=== PATIENT | male | born 1960 | race Hispanic/Latino ===

== ENCOUNTER 2018-06-28 20:36 | Emergency (ER) | payer OTHER ==
[~2018-06-28 20:36] MED LIST: ASPI-555 PO; ATOR40TA69 PO; CARV6.25 PO; CLOP75TA32 PO; ESCI10TA54 PO; LISI10TA7 PO; NAPR250T4 PO; TRAM50TA4 PO
[2018-06-28] MEDS ORDERED: ONDANSETRON HCL 4 MG/2 ML VIAL ONE (21:08)
[2018-06-28] MEDS ORDERED: LACTATED RINGERS 1000ML 1,000 ML IV ONE (21:09)
[2018-06-28] MEDS ORDERED: FAMOTIDINE/PF 20 MG/2 ML VIAL IV ONE (21:09)
[2018-06-28 21:30] LABS: BASOPHILS % (AUTO) 0.6 % (0.0-5.0); EOSINOPHILS % (AUTO) 1.7 % (0.0-8.0); HEMATOCRIT 34.1 % (42-54); LYMPHOCYTES % (AUTO) 27.8 % (21.0-51.0); MEAN CORPUSCULAR VOLUME 78.9 fL (79-99); MONOCYTES % (AUTO) 7.9 % (3.0-13.0); PLATELET COUNT (AUTO) 256 K/uL (130-400); RED BLOOD CELL COUNT(AUTO) 4.32 MIL/uL (4.50-6.20); RED CELL DISTRIBUTION WIDTH 16.6 % (11.0-15.5); WHITE BLOOD COUNT (AUTO) 6.9 K/uL (4.8-10.8)
[2018-06-28 21:43] LABS: INR 0.95 (0.85-1.15); PARTIAL THROMBOPLASTIN TIME 26.6 SEC (26.3-35.5)
[2018-06-28 21:44] LABS: CREATININE 0.9 mg/dL (0.5-1.5); POTASSIUM 3.8 mmol/L (3.5-5.1)
[2018-06-28 21:50] LABS: ALBUMIN 3.1 g/dL (3.5-5.0); BILIRUBIN,TOTAL 0.1 mg/dL (0.2-1.0); CRP QUANTITATIVE 7.9 mg/L (0.00-9.0); MAGNESIUM 1.9 mg/dL (1.80-2.40); TOTAL PROTEIN, SERUM 7.1 g/dL (6.0-8.3)
[2018-06-28 22:12] LABS: APPEARANCE,URINE Clear (CLEAR); BILIRUBIN,URINE Negative (NEGATIVE); COLOR,URINE Yellow (YELLOW); GLUCOSE, URINE (UA) Negative (NEGATIVE); KETONES,URINE Negative (NEGATIVE); LEUKOCYTE ESTERASE ,URINE Negative (NEGATIVE); NITRATE,URINE Negative (NEGATIVE); OCCULT BLOOD,URINE Negative (NEGATIVE); PH,URINE 6.5 (5.0-8.0); PROTEIN,URINE Negative (NEGATIVE)
[2018-06-28] MEDS ORDERED: MAG HYDROX/AL HYDROX/SIMETH ES 30 ML SUSP UDCUP ONE (22:32)
[2018-06-28] MEDS ORDERED: IPRATROPIUM/ALBUTEROL SULFATE 3 ML SOLUTION IH ONE (22:45)
== END 2018-06-28 23:10 | disposition home or self-care (01) ==
LOC: EDH 20:36
DX: E86.0 Dehydration (principal); R42 Dizziness and giddiness; J44.9 Chronic obstructive pulmonary disease, unspecified; R53.81 Other malaise; R53.83 Other fatigue; I25.10 Atherosclerotic heart disease of native coronary artery without angina pectoris; I10 Essential (primary) hypertension
CPT/HCPCS: 36415; 70450; 71045; 72125; 80053; 81003; 82550; 83605; 83690; 83735; 84484; 85025; 85610; 85730; 86140; 87040 ×2; 87804 ×2; 93005; 94640; 96361; 96374; 96375; 99285; J2405; J3490; J7120

== ENCOUNTER 2018-07-24 11:50 | Emergency (ER) | payer OTHER ==
[2018-07-24 12:24] LABS: CREATININE 0.9 mg/dL (0.5-1.5); POTASSIUM 4.2 mmol/L (3.5-5.1)
[2018-07-24 12:27] LABS: INR 0.89 (0.85-1.15); PARTIAL THROMBOPLASTIN TIME 26.4 SEC (26.3-35.5); PROTHROMBIN TIME 9.4 SEC (9.6-11.6)
[2018-07-24 12:31] LABS: ALBUMIN 3.1 g/dL (3.5-5.0); BASOPHILS % (AUTO) 0.9 % (0.0-5.0); BILIRUBIN,TOTAL 0.1 mg/dL (0.2-1.0); EOSINOPHILS % (AUTO) 3.2 % (0.0-8.0); HEMATOCRIT 34.1 % (42-54); LYMPHOCYTES % (AUTO) 24.2 % (21.0-51.0); MEAN CORPUSCULAR HEMOGLOBIN 26.4 pg (27.0-33.0); MEAN CORPUSCULAR HGB CONC 32.8 g/dL (32.0-36.0); MEAN CORPUSCULAR VOLUME 80.5 fL (79-99); MONOCYTES % (AUTO) 8.3 % (3.0-13.0); NEUTROPHILS % (AUTO) 63.4 % (40.0-77.0); PLATELET COUNT (AUTO) 305 K/uL (130-400); RED BLOOD CELL COUNT(AUTO) 4.24 MIL/uL (4.50-6.20); RED CELL DISTRIBUTION WIDTH 16.9 % (11.0-15.5); TOTAL PROTEIN, SERUM 7.4 g/dL (6.0-8.3); WHITE BLOOD COUNT (AUTO) 6.9 K/uL (4.8-10.8)
[2018-07-24 13:01] LABS: APPEARANCE,URINE Clear (CLEAR); BILIRUBIN,URINE Negative (NEGATIVE); COLOR,URINE Yellow (YELLOW); GLUCOSE, URINE (UA) Negative (NEGATIVE); KETONES,URINE Negative (NEGATIVE); LEUKOCYTE ESTERASE ,URINE Negative (NEGATIVE); NITRATE,URINE Negative (NEGATIVE); OCCULT BLOOD,URINE Negative (NEGATIVE); PH,URINE 5.5 (5.0-8.0); PROTEIN,URINE Negative (NEGATIVE); UROBILINOGEN,URINE 0.2 mg/dL (0.2-1.0)
[2018-07-24 13:08] LABS: AMPHET/METH SCREEN,URINE NEGATIVE (NEGATIVE); BARBITURATE SCREEN, URINE NEGATIVE (NEGATIVE); BENZODIAZEPINES SCREEN,URINE POSITIVE (NEGATIVE); CANNABINOID SCREEN,URINE NEGATIVE (NEGATIVE); COCAINE SCREEN,URINE NEGATIVE (NEGATIVE); OPIATE SCREEN,URINE NEGATIVE (NEGATIVE); PHENCYCLIDINE SCREEN,URINE NEGATIVE (NEGATIVE)
[2018-07-24] MEDS ORDERED: SODIUM CHLORIDE 0.9% 1000ML 1,000 ML IV ONE (14:00)
[2018-07-24] MEDS ORDERED: IOHEXOL 350 MG/ML 100ML INFUS..BTL IV ONE (15:00)
[2018-07-24] MEDS ORDERED: METHYLPREDNISOLONE SOD SUCC 125MG/2ML VIAL ONE (16:19)
== END 2018-07-24 16:48 | disposition home or self-care (01) ==
LOC: EDH 11:50
DX: I24.1 Dressler's syndrome (principal); R07.89 Other chest pain; R42 Dizziness and giddiness; R06.02 Shortness of breath; I25.10 Atherosclerotic heart disease of native coronary artery without angina pectoris; J44.9 Chronic obstructive pulmonary disease, unspecified; I10 Essential (primary) hypertension; Z95.1 Presence of aortocoronary bypass graft
CPT/HCPCS: 36415; 71045; 71275; 80053; 80305; 81003; 82550; 83880; 84484; 85025; 85378; 85610; 85730; 93005; 96361; 96374; 99291; J2930; J7030; Q9967

== ENCOUNTER 2018-07-31 14:34 | Emergency (ER) | payer OTHER ==
[2018-07-31] MEDS ORDERED: MORPHINE SULFATE 4 MG/1ML SYG ONE (16:58)
[2018-07-31] MEDS ORDERED: ONDANSETRON HCL 4 MG/2 ML VIAL ONE (16:58)
[2018-07-31 17:02] LABS: BASOPHILS % (AUTO) 0.8 % (0.0-5.0); EOSINOPHILS % (AUTO) 3.2 % (0.0-8.0); HEMATOCRIT 34.5 % (42-54); LYMPHOCYTES % (AUTO) 20.3 % (21.0-51.0); MEAN CORPUSCULAR HEMOGLOBIN 24.3 pg (27.0-33.0); MEAN CORPUSCULAR HGB CONC 30.1 g/dL (32.0-36.0); MEAN CORPUSCULAR VOLUME 80.8 fL (79-99); MONOCYTES % (AUTO) 8.7 % (3.0-13.0); NUCLEATED RED BLOOD CELLS 0.1 % (0.0-0.19); PLATELET COUNT (AUTO) 285 K/uL (130-400); RED BLOOD CELL COUNT(AUTO) 4.27 MIL/uL (4.50-6.20); RED CELL DISTRIBUTION WIDTH 16.8 % (11.0-15.5); WHITE BLOOD COUNT (AUTO) 8.3 K/uL (4.8-10.8)
[2018-07-31 17:12] LABS: POTASSIUM 4.3 mmol/L (3.5-5.1)
[2018-07-31 17:17] LABS: ALBUMIN 3.1 g/dL (3.5-5.0); BILIRUBIN,TOTAL 0.2 mg/dL (0.2-1.0); TOTAL PROTEIN, SERUM 7.3 g/dL (6.0-8.3)
== END 2018-07-31 18:18 | disposition home or self-care (01) ==
LOC: EDH 14:34
DX: S62.002A Unspecified fracture of navicular [scaphoid] bone of left wrist, initial encounter for closed fracture (principal); R42 Dizziness and giddiness; M19.90 Unspecified osteoarthritis, unspecified site; J44.9 Chronic obstructive pulmonary disease, unspecified; I25.10 Atherosclerotic heart disease of native coronary artery without angina pectoris; I10 Essential (primary) hypertension; Z90.49 Acquired absence of other specified parts of digestive tract; Z95.1 Presence of aortocoronary bypass graft; Z98.890 Other specified postprocedural states; W18.39XA Other fall on same level, initial encounter; Y93.89 Activity, other specified; Y92.89 Other specified places as the place of occurrence of the external cause; Y99.8 Other external cause status
CPT/HCPCS: 29125; 36415; 71045; 73080; 73110; 73130; 80053; 84484; 85025; 93005; 96374; 96375; 99285; J2270; J2405

== ENCOUNTER 2018-08-01 00:05 | Inpatient (IN) | payer OTHER ==
[2018-08-01] VITALS (8 sets, daily range): BP systolic 129–148; BP diastolic 74–97
[~2018-08-01] VITALS: Ht 175.3 cm; Wt 102.3 kg
[2018-08-01] MEDS ORDERED: ONDANSETRON 4 MG TABLET ONE (01:43)
[2018-08-01] MEDS ORDERED: ACETAMINOPHEN 325 MG TAB ONE (01:43)
[2018-08-01] MEDS ORDERED: MORPHINE SULFATE 4 MG/1ML SYG ONE (01:43)
[2018-08-01 02:15] LABS: BASOPHILS % (AUTO) 0.5 % (0.0-5.0); MEAN CORPUSCULAR HEMOGLOBIN 25.3 pg (27.0-33.0); MEAN CORPUSCULAR HGB CONC 31.6 g/dL (32.0-36.0); MEAN CORPUSCULAR VOLUME 80.2 fL (79-99); MONOCYTES % (AUTO) 6.6 % (3.0-13.0); NEUTROPHILS % (AUTO) 80.9 % (40.0-77.0); PLATELET COUNT (AUTO) 302 K/uL (130-400); RED BLOOD CELL COUNT(AUTO) 4.36 MIL/uL (4.50-6.20); RED CELL DISTRIBUTION WIDTH 16.6 % (11.0-15.5); WHITE BLOOD COUNT (AUTO) 10.9 K/uL (4.8-10.8)
[2018-08-01] MEDS ORDERED: LIDOCAINE HCL 1% 20 ML VIAL ONE (05:18)
[2018-08-01] MEDS ORDERED: DEXTROSE 50%-WATER 50 ML DISP.SYRIN IV PRN ×2 (06:15→12:15)
[2018-08-01] MEDS ORDERED: CEFTRIAXONE SODIUM 1 GM ONE (06:15)
[2018-08-01] MEDS ORDERED: GLUCAGON 1MG KIT 1 MG ML IM PRN ×2 (06:15→12:15)
[2018-08-01] MEDS ORDERED: HYDROCODONE/ACETAMINOPHEN 5/325 MG TAB PO PRN (06:15)
[2018-08-01] MEDS ORDERED: ONDANSETRON HCL 4 MG/2 ML VIAL IV PRN (06:15)
[2018-08-01] MEDS ORDERED: ACETAMINOPHEN 325 MG TAB PO PRN (06:15)
[2018-08-01] MEDS ORDERED: CLINDAMYCIN 600 MG/D5% WATER 50 ML IV ONE (06:54)
[2018-08-01 07:23] LABS: APPEARANCE BODY FLUID TURBID (CLEAR); BODY FLUID RBC 190750 /cu. mm.; BODY FLUID WBC 26032 /cu. mm.; COLOR,BODY FLUID RED (LT YELLOW); SPECIMENTYPE,BODY FLUID SYNOVIAL; TOTAL VOLUME,BODY FLUID 1 mL
[2018-08-01] MEDS ORDERED: INSULIN HUMULIN R 100 UNIT/ML 3ML SQ SCH (07:30)
[2018-08-01 08:06] LABS: BF LYMPHOCYTE 1 %; BF MONOCYTE 8 %
[2018-08-01 08:18] LABS: GLUCOSE,BODY FLUID 84 mg/dL (1-40)
[2018-08-01] MEDS: PANTOPRAZOLE SODIUM 40 MG TABLET.DR PO SCH (08:53)
[2018-08-01] MEDS: HYDROCODONE/ACETAMINOPHEN 5/325 MG TAB PO PRN ×3 (08:55→18:21)
[2018-08-01] MEDS: CLINDAMYCIN 600 MG/D5% WATER 50 ML IV SCH ×2 (13:52→20:48)
[2018-08-01] MEDS: INSULIN HUMULIN R 100 UNIT/ML 3ML SQ SCH ×2 (16:30→20:40)
[2018-08-01 17:44] LABS: CRYSTALS, SYNOVIAL FLUID SEE SEPARATE REPORT
[2018-08-02] VITALS (13 sets, daily range): BP systolic 118–154; BP diastolic 50–97
[2018-08-02] MEDS: HYDROCODONE/ACETAMINOPHEN 5/325 MG TAB PO PRN ×3 (00:52→21:36)
[2018-08-02 04:37] LABS: MEAN CORPUSCULAR HEMOGLOBIN 25.7 pg (27.0-33.0); MEAN CORPUSCULAR HGB CONC 32.1 g/dL (32.0-36.0); MEAN CORPUSCULAR VOLUME 80.2 fL (79-99); PLATELET COUNT (AUTO) 270 K/uL (130-400); RED BLOOD CELL COUNT(AUTO) 4.24 MIL/uL (4.50-6.20); RED CELL DISTRIBUTION WIDTH 16.5 % (11.0-15.5); WHITE BLOOD COUNT (AUTO) 8.9 K/uL (4.8-10.8)
[2018-08-02 04:50] LABS: ALBUMIN 2.9 g/dL (3.5-5.0); BILIRUBIN,TOTAL 0.3 mg/dL (0.2-1.0); POTASSIUM 4.2 mmol/L (3.5-5.1); TOTAL PROTEIN, SERUM 7.2 g/dL (6.0-8.3)
[2018-08-02] MEDS: PANTOPRAZOLE SODIUM 40 MG TABLET.DR PO SCH (06:10)
[2018-08-02] MEDS: INSULIN HUMULIN R 100 UNIT/ML 3ML SQ SCH ×4 (06:10→21:00)
[2018-08-02] MEDS: CLINDAMYCIN 600 MG/D5% WATER 50 ML IV SCH ×3 (06:10→21:29)
[2018-08-02] MEDS: ASPIRIN 81 MG EC TAB PO SCH (09:50)
[2018-08-02] MEDS: CARVEDILOL 6.25 MG TABLET PO SCH ×2 (09:51→21:28)
[2018-08-02] MEDS: CLOPIDOGREL BISULFATE 75 MG TAB PO SCH (09:51)
[2018-08-02] MEDS: CITALOPRAM 20 MG TABLET PO SCH (09:51)
[2018-08-02] MEDS: LISINOPRIL 10 MG TABLET PO SCH (21:27)
[2018-08-02] MEDS: ATORVASTATIN CALCIUM 40 MG TABLET PO SCH (21:27)
[2018-08-03] VITALS (9 sets, daily range): BP systolic 86–139; BP diastolic 50–92
[2018-08-03] MEDS: IPRATROPIUM/ALBUTEROL SULFATE 3 ML SOLUTION IH SCH ×5 (01:29→22:58)
[2018-08-03 06:09] LABS: BASOPHILS % (AUTO) 0.6 % (0.0-5.0); EOSINOPHILS % (AUTO) 1.1 % (0.0-8.0); HEMATOCRIT 32.5 % (42-54); LYMPHOCYTES % (AUTO) 13.5 % (21.0-51.0); MEAN CORPUSCULAR HEMOGLOBIN 26.9 pg (27.0-33.0); MEAN CORPUSCULAR HGB CONC 33.7 g/dL (32.0-36.0); MEAN CORPUSCULAR VOLUME 79.8 fL (79-99); MONOCYTES % (AUTO) 11.4 % (3.0-13.0); NEUTROPHILS % (AUTO) 73.4 % (40.0-77.0); PLATELET COUNT (AUTO) 326 K/uL (130-400); RED BLOOD CELL COUNT(AUTO) 4.07 MIL/uL (4.50-6.20); RED CELL DISTRIBUTION WIDTH 16.9 % (11.0-15.5); WHITE BLOOD COUNT (AUTO) 9.4 K/uL (4.8-10.8)
[2018-08-03 06:21] LABS: CREATININE 0.9 mg/dL (0.5-1.5); POTASSIUM 4.1 mmol/L (3.5-5.1)
[2018-08-03] MEDS: CLINDAMYCIN 600 MG/D5% WATER 50 ML IV SCH ×3 (06:25→21:44)
[2018-08-03] MEDS: PANTOPRAZOLE SODIUM 40 MG TABLET.DR PO SCH (06:25)
[2018-08-03] MEDS: INSULIN HUMULIN R 100 UNIT/ML 3ML SQ SCH ×4 (07:30→21:00)
[2018-08-03] MEDS: CITALOPRAM 20 MG TABLET PO SCH (10:38)
[2018-08-03] MEDS: ASPIRIN 81 MG EC TAB PO SCH (10:38)
[2018-08-03] MEDS: CLOPIDOGREL BISULFATE 75 MG TAB PO SCH (10:38)
[2018-08-03] MEDS: CARVEDILOL 6.25 MG TABLET PO SCH ×2 (10:39→21:42)
[2018-08-03] MEDS: HYDROCODONE/ACETAMINOPHEN 5/325 MG TAB PO PRN ×2 (10:46→21:44)
[2018-08-03] MEDS: INDOMETHACIN 25 MG CAP PO SCH ×2 (12:21→21:42)
[2018-08-03] MEDS: LISINOPRIL 10 MG TABLET PO SCH (21:42)
[2018-08-03] MEDS: ATORVASTATIN CALCIUM 40 MG TABLET PO SCH (21:42)
[2018-08-04] VITALS (9 sets, daily range): BP systolic 67–134; BP diastolic 45–81
[2018-08-04] MEDS: HYDROCODONE/ACETAMINOPHEN 5/325 MG TAB PO PRN ×2 (03:08→15:26)
[2018-08-04 04:45] LABS: BASOPHILS % (AUTO) 0.5 % (0.0-5.0); HEMATOCRIT 31.4 % (42-54); MEAN CORPUSCULAR HEMOGLOBIN 26.2 pg (27.0-33.0); MEAN CORPUSCULAR HGB CONC 32.8 g/dL (32.0-36.0); MEAN CORPUSCULAR VOLUME 79.8 fL (79-99); MONOCYTES % (AUTO) 11.4 % (3.0-13.0); NEUTROPHILS % (AUTO) 62.1 % (40.0-77.0); NUCLEATED RED BLOOD CELLS 0.1 % (0.0-0.19); PLATELET COUNT (AUTO) 288 K/uL (130-400); RED BLOOD CELL COUNT(AUTO) 3.94 MIL/uL (4.50-6.20); RED CELL DISTRIBUTION WIDTH 16.5 % (11.0-15.5); WHITE BLOOD COUNT (AUTO) 6.8 K/uL (4.8-10.8)
[2018-08-04 04:53] LABS: CREATININE 1.2 mg/dL (0.5-1.5); POTASSIUM 3.8 mmol/L (3.5-5.1); URIC ACID 6.3 mg/dL (2.6-7.2)
[2018-08-04] MEDS: INSULIN HUMULIN R 100 UNIT/ML 3ML SQ SCH ×4 (05:50→21:00)
[2018-08-04] MEDS: CLINDAMYCIN 600 MG/D5% WATER 50 ML IV SCH ×3 (06:02→23:32)
[2018-08-04] MEDS: IPRATROPIUM/ALBUTEROL SULFATE 3 ML SOLUTION IH SCH ×4 (06:05→23:04)
[2018-08-04] MEDS: PANTOPRAZOLE SODIUM 40 MG TABLET.DR PO SCH (08:16)
[2018-08-04] MEDS: CLOPIDOGREL BISULFATE 75 MG TAB PO SCH (11:10)
[2018-08-04] MEDS: CARVEDILOL 6.25 MG TABLET PO SCH ×2 (11:11→21:14)
[2018-08-04] MEDS: ASPIRIN 81 MG EC TAB PO SCH (11:11)
[2018-08-04] MEDS: CITALOPRAM 20 MG TABLET PO SCH (11:11)
[2018-08-04] MEDS: INDOMETHACIN 25 MG CAP PO SCH ×2 (11:17→21:13)
[2018-08-04] MEDS: ATORVASTATIN CALCIUM 40 MG TABLET PO SCH (21:13)
[2018-08-04] MEDS: LISINOPRIL 10 MG TABLET PO SCH (21:14)
[2018-08-05 04:00] VITALS: BP 134/66
[2018-08-05] MEDS: HYDROCODONE/ACETAMINOPHEN 5/325 MG TAB PO PRN ×2 (04:26→11:03)
[2018-08-05] MEDS: IPRATROPIUM/ALBUTEROL SULFATE 3 ML SOLUTION IH SCH ×2 (05:59→11:26)
[2018-08-05] MEDS: INSULIN HUMULIN R 100 UNIT/ML 3ML SQ SCH ×2 (06:08→11:30)
[2018-08-05] MEDS: CLINDAMYCIN 600 MG/D5% WATER 50 ML IV SCH (06:09)
[2018-08-05] MEDS: PANTOPRAZOLE SODIUM 40 MG TABLET.DR PO SCH (06:09)
[2018-08-05 07:30] VITALS: BP 126/78
[2018-08-05 07:32] VITALS: BP 135/89
[2018-08-05 07:35] VITALS: BP 131/90
[2018-08-05 11:00] VITALS: BP 104/66
[2018-08-05 11:04] VITALS: BP 131/90
[2018-08-05] MEDS: CARVEDILOL 6.25 MG TABLET PO SCH (11:04)
[2018-08-05] MEDS: CITALOPRAM 20 MG TABLET PO SCH (11:04)
[2018-08-05] MEDS: INDOMETHACIN 25 MG CAP PO SCH (11:04)
[2018-08-05] MEDS: CLOPIDOGREL BISULFATE 75 MG TAB PO SCH (11:04)
[2018-08-05] MEDS: ASPIRIN 81 MG EC TAB PO SCH (11:04)
[2018-08-05] MEDS ORDERED: NAPR-1023 PO (11:23)
== END 2018-08-05 14:41 | disposition home or self-care (01) | DRG 603 ==
LOC: EDH 00:05 → EDHIP 00:06 → 3AH 07:49
PROVIDERS: ADMIT Internal Medicine; ATTEND Internal Medicine
DX: L03.114 Cellulitis of left upper limb (principal); I25.10 Atherosclerotic heart disease of native coronary artery without angina pectoris; M10.9 Gout, unspecified; I10 Essential (primary) hypertension; J44.9 Chronic obstructive pulmonary disease, unspecified; E11.9 Type 2 diabetes mellitus without complications; M19.032 Primary osteoarthritis, left wrist; W19.XXXA Unspecified fall, initial encounter; Y93.E1 Activity, personal bathing and showering; Y92.091 Bathroom in other non-institutional residence as the place of occurrence of the external cause; Y99.8 Other external cause status; Z95.1 Presence of aortocoronary bypass graft; Z88.5 Allergy status to narcotic agent; Z79.4 Long term (current) use of insulin; Z80.3 Family history of malignant neoplasm of breast; Z83.6 Family history of other diseases of the respiratory system; Z83.3 Family history of diabetes mellitus; Z82.49 Family history of ischemic heart disease and other diseases of the circulatory system; Z82.5 Family history of asthma and other chronic lower respiratory diseases
CPT/HCPCS: 36415; 73110; 73200; 78315; 80048; 80053; 82945; 82948; 84157; 84550; 85025; 85027; 87071; 87205; 89051; 89060; 93971; 94640; 94664; A9503; J0696; J2270; J3490; Q0162

== ENCOUNTER 2018-10-05 12:08 | Inpatient (IN) | payer OTHER ==
[~2018-10-05] VITALS: Ht 175.3 cm; Wt 102.1 kg
[~2018-10-05 12:08] MED LIST changes: +NAPR-1023 PO; -NAPR250T4 PO
[2018-10-05 13:14] LABS: BASOPHILS % (AUTO) 0.6 % (0.0-5.0); EOSINOPHILS % (AUTO) 2.7 % (0.0-8.0); HEMATOCRIT 34.7 % (42-54); LYMPHOCYTES % (AUTO) 27.1 % (21.0-51.0); MEAN CORPUSCULAR HGB CONC 33.3 g/dL (32.0-36.0); MONOCYTES % (AUTO) 7.3 % (3.0-13.0); NEUTROPHILS % (AUTO) 62.3 % (40.0-77.0); PLATELET COUNT (AUTO) 345 K/uL (130-400); RED BLOOD CELL COUNT(AUTO) 4.29 MIL/uL (4.50-6.20); RED CELL DISTRIBUTION WIDTH 15.9 % (11.0-15.5); WHITE BLOOD COUNT (AUTO) 5.9 K/uL (4.8-10.8)
[2018-10-05 13:28] LABS: CREATININE 0.8 mg/dL (0.5-1.5); POTASSIUM 3.9 mmol/L (3.5-5.1)
[2018-10-05 13:31] LABS: INR 0.96 (0.85-1.15); PROTHROMBIN TIME 10.1 SEC (9.6-11.6)
[2018-10-05 13:33] LABS: ALBUMIN 3.2 g/dL (3.5-5.0); BILIRUBIN,TOTAL 0.3 mg/dL (0.2-1.0); TOTAL PROTEIN, SERUM 6.9 g/dL (6.0-8.3)
[2018-10-05] MEDS ORDERED: ONDANSETRON HCL 4 MG/2 ML VIAL ONE ×2 (13:59→19:32)
[2018-10-05] MEDS ORDERED: SODIUM CHLORIDE 0.9% 1000ML 1,000 ML IV ONE (13:59)
[2018-10-05] MEDS ORDERED: MORPHINE SULFATE 4 MG/1ML SYG ONE ×2 (13:59→19:33)
[2018-10-05] MEDS ORDERED: ONDANSETRON HCL MDV 20ML 2 MG/ML VIAL IV PRN (22:15)
[2018-10-05] MEDS ORDERED: ACETAMINOPHEN 325 MG TAB PO PRN (22:15)
[2018-10-05] MEDS ORDERED: TRAMADOL HCL 50 MG TABLET PO SCH (22:15)
[2018-10-06 02:05] VITALS: BP 155/94
[2018-10-06] MEDS ORDERED: TRAMADOL HCL 50 MG TABLET PO PRN (03:15)
[2018-10-06] MEDS: SODIUM CHLORIDE 0.9% 1000ML 1,000 ML IV SCH ×3 (03:25→14:08)
[2018-10-06] MEDS: MORPHINE SULFATE 2 MG/ML 1ML SYG IVP PRN ×2 (03:44→10:11)
[2018-10-06 04:00] VITALS: BP 148/82
[2018-10-06] MEDS ORDERED: SODIUM CHLORIDE 0.9% 100 ML IV ONE (04:36)
[2018-10-06] MEDS: PANTOPRAZOLE SODIUM 80 MG in SODIUM CHLORIDE 0.9% 100 ML IV SCH ×3 (04:57→14:08)
[2018-10-06] MEDS ORDERED: DEXTROSE 50%-WATER 50 ML DISP.SYRIN IV PRN (05:30)
[2018-10-06] MEDS ORDERED: GLUCAGON 1MG KIT 1 MG ML IM PRN (05:30)
[2018-10-06 05:42] LABS: BASOPHILS % (AUTO) 0.6 % (0.0-5.0); EOSINOPHILS % (AUTO) 3.9 % (0.0-8.0); HEMATOCRIT 33.7 % (42-54); LYMPHOCYTES % (AUTO) 26.2 % (21.0-51.0); MEAN CORPUSCULAR HEMOGLOBIN 26.1 pg (27.0-33.0); MEAN CORPUSCULAR HGB CONC 32.3 g/dL (32.0-36.0); MEAN CORPUSCULAR VOLUME 80.5 fL (79-99); NEUTROPHILS % (AUTO) 62.3 % (40.0-77.0); NUCLEATED RED BLOOD CELLS 0.1 % (0.0-0.19); PLATELET COUNT (AUTO) 280 K/uL (130-400); RED BLOOD CELL COUNT(AUTO) 4.19 MIL/uL (4.50-6.20)
[2018-10-06 05:51] LABS: INR 0.98 (0.85-1.15); PARTIAL THROMBOPLASTIN TIME 26.8 SEC (26.3-35.5); PROTHROMBIN TIME 10.3 SEC (9.6-11.6)
[2018-10-06 05:56] LABS: BILIRUBIN,TOTAL 0.3 mg/dL (0.2-1.0); CREATININE 0.8 mg/dL (0.5-1.5); POTASSIUM 3.8 mmol/L (3.5-5.1); TOTAL PROTEIN, SERUM 6.5 g/dL (6.0-8.3)
[2018-10-06] MEDS: INSULIN HUMULIN R 100 UNIT/ML 3ML SQ SCH ×3 (06:00→18:00)
[2018-10-06 07:00] VITALS: BP 135/88
[2018-10-06] MEDS: Escitalopram Oxalate 10 MG PO SCH (09:00)
[2018-10-06] MEDS: CARVEDILOL 6.25 MG TABLET PO SCH ×2 (09:15→21:38)
[2018-10-06 11:00] VITALS: BP 127/83
[2018-10-06 16:00] VITALS: BP 147/83
[2018-10-06] MEDS ORDERED: LEVOFLOXACIN 500 MG TABLET PO SCH (18:00)
[2018-10-06 19:00] VITALS: BP 124/75
[2018-10-06] MEDS ORDERED: LISINOPRIL 10 MG TABLET PO SCH (21:00)
[2018-10-06] MEDS ORDERED: ATORVASTATIN CALCIUM 40 MG TABLET PO SCH (21:00)
[2018-10-06] MEDS: METRONIDAZOLE 500 MG TABLET PO SCH (21:37)
[2018-10-07] VITALS: BP 126/80
[2018-10-07] MEDS: PANTOPRAZOLE SODIUM 80 MG in SODIUM CHLORIDE 0.9% 100 ML IV SCH (01:43)
[2018-10-07] MEDS: SODIUM CHLORIDE 0.9% 1000ML 1,000 ML IV SCH (01:43)
[2018-10-07 04:00] VITALS: BP 126/79
[2018-10-07 04:43] LABS: HEMATOCRIT 33.3 % (42-54); MEAN CORPUSCULAR HEMOGLOBIN 27.2 pg (27.0-33.0); MEAN CORPUSCULAR HGB CONC 33.5 g/dL (32.0-36.0); MEAN CORPUSCULAR VOLUME 81.2 fL (79-99); PLATELET COUNT (AUTO) 325 K/uL (130-400); RED CELL DISTRIBUTION WIDTH 15.5 % (11.0-15.5); WHITE BLOOD COUNT (AUTO) 7.2 K/uL (4.8-10.8)
[2018-10-07 04:59] LABS: CREATININE 0.8 mg/dL (0.5-1.5); POTASSIUM 3.7 mmol/L (3.5-5.1)
[2018-10-07] MEDS: INSULIN HUMULIN R 100 UNIT/ML 3ML SQ SCH ×2 (06:17→11:30)
[2018-10-07 08:31] VITALS: BP 129/80
[2018-10-07] MEDS: METRONIDAZOLE 500 MG TABLET PO SCH (08:36)
[2018-10-07] MEDS: CARVEDILOL 6.25 MG TABLET PO SCH (08:37)
[2018-10-07] MEDS: Escitalopram Oxalate 10 MG PO SCH (08:38)
[2018-10-07] MEDS ORDERED: MORPHINE SULFATE 4 MG/1ML SYG ONE (08:50)
[2018-10-07] MEDS: MORPHINE SULFATE 2 MG/ML 1ML SYG IVP PRN (08:54)
[2018-10-07 13:54] VITALS: BP 139/85
== END 2018-10-07 14:30 | disposition home or self-care (01) | DRG 379 ==
LOC: EDH 12:08 → EDHIP 12:09 → OBSVTOIN 12:09 → 3CH 10-06 01:49
PROVIDERS: ADMIT Internal Medicine; ATTEND Internal Medicine
DX: K57.31 Diverticulosis of large intestine without perforation or abscess with bleeding (principal); D64.9 Anemia, unspecified; J44.9 Chronic obstructive pulmonary disease, unspecified; I25.10 Atherosclerotic heart disease of native coronary artery without angina pectoris; I10 Essential (primary) hypertension; E11.9 Type 2 diabetes mellitus without complications; M19.90 Unspecified osteoarthritis, unspecified site; Z80.3 Family history of malignant neoplasm of breast; Z95.1 Presence of aortocoronary bypass graft; Z79.4 Long term (current) use of insulin; Z83.3 Family history of diabetes mellitus; Z82.49 Family history of ischemic heart disease and other diseases of the circulatory system; Z80.8 Family history of malignant neoplasm of other organs or systems; Z79.82 Long term (current) use of aspirin; Z79.02 Long term (current) use of antithrombotics/antiplatelets; Z79.899 Other long term (current) drug therapy
CPT/HCPCS: 36415; 74176; 80048; 80053; 82270; 82948; 85025; 85027; 85610; 85730; 86850; 86900; 86901; C9113; G0378; J2270; J2405; J7030